=== PATIENT | female | born 1970 | race Caucasian/White ===

== ENCOUNTER → 2017-02-13 | Outpatient (CLI) | payer BC ==
[2017-02-13 13:26] LABS: BASOPHILS % 0.6 % (0.0-2.0); EOSINOPHILS # 0.2 10^3/ul (0.0-0.5); EOSINOPHILS % 3.3 % (0.0-7.0); HEMATOCRIT 36.1 % (37.0-47.0); HEMOGLOBIN 12.9 g/dl (12.0-16.0); LYMPHOCYTES # 1.8 10^3/ul (0.8-2.9); LYMPHOCYTES % 33.6 % (15.0-51.0); MEAN CORPUSCULAR HEMOGLOBIN 31.8 pg (29.0-33.0); MEAN CORPUSCULAR HGB CONC 35.7 g/dl (32.0-37.0); MEAN CORPUSCULAR VOLUME 88.9 fl (82.0-101.0); MEAN PLATELET VOLUME 9.3 fl (7.4-10.4); MONOCYTE # 0.3 10^3/ul (0.3-0.9); MONOCYTES % 5.5 % (0.0-11.0); NEUTROPHIL # 3.1 10^3/ul (1.6-7.5); NEUTROPHILS % 56.4 % (39.0-77.0); PLATELET COUNT 348 10^3/UL (140-415); RED BLOOD COUNT 4.06 10^6/ul (4.20-5.40); WHITE BLOOD COUNT 5.4 10^3/ul (4.8-10.8)
[2017-02-13 13:46] LABS: ALBUMIN 4.7 g/dl (3.3-4.9); ALBUMIN/GLOBULIN RATIO 1.23; BILIRUBIN,INDIRECT 0.3 mg/dl (0-1.1); BILIRUBIN,TOTAL 0.3 mg/dl (0.2-1.3); CHOL/HDL RATIO 3.1 RATIO; CREATININE 0.76 mg/dl (0.44-1.00); POTASSIUM 4.6 mmol/L (3.5-5.1); TOTAL PROTEIN 8.5 g/dl (6.1-8.1)
[2017-02-13 14:17] LABS: THYROID STIMULATING HORMONE 1.64 MIU/L (0.465-4.680)
--- NOTE | 2017-02-13 16:15 | RADRPT ---
PROCEDURE: XR right elbow. CLINICAL INDICATION: Right elbow pain. Myofascial strain isidoro TECHNIQUE: 4 views. Frontal, lateral, and obliques. COMPARISON: No prior study is available for comparison. FINDINGS: There is no fracture or dislocation. The soft tissues are normal. Articular surfaces are intact. There is no lytic or blastic lesion. There is no radiopaque foreign body. IMPRESSION: 1. Unremarkable images of the right elbow. RPTAT: QQ .Mikie Rousseau MD, MD Date Time Electronically viewed and signed by .Mikie Rousseau MD, on 02/13/2017 16:15 .R/
--- NOTE | 2017-02-13 16:17 | RADRPT ---
PROCEDURE: XR Chest. CLINICAL INDICATION: Cough. Bronchitis. TECHNIQUE: Two views. Frontal and lateral. COMPARISON: No prior study is available for comparison. FINDINGS: The lungs are clear. The heart size is normal. There is no pleural effusion. There is no pneumothorax. IMPRESSION: 1. Normal chest radiograph. RPTAT: QQ .Mikie Rousseau MD, MD Date Time Electronically viewed and signed by .Mikie Rousseau MD, on 02/13/2017 16:16 .R/
== END | disposition home or self-care (01) ==
LOC: EEVIPCON 12:43 → LAB 12:43
PROVIDERS: ATTEND Internal Medicine
DX: E78.5 Hyperlipidemia, unspecified (principal); E03.9 Hypothyroidism, unspecified
CPT/HCPCS: 71020; 73070; 80053; 80061; 84436; 84443; 85025; 85651